=== PATIENT | male | born 1960 | race African-American/Black ===

== ENCOUNTER 2017-04-22 19:47 | Emergency (ER) | payer OTHER ==
[~2017-04-22] VITALS: Ht 167.6 cm; Wt 77.1 kg
[2017-04-22] MEDS ORDERED: MOBIC15 MG PO (20:42)
[2017-04-22 20:48] VITALS: BP 156/85
== END 2017-04-22 20:59 | disposition home or self-care (01) ==
LOC: ER 19:47
DX: K11.5 Sialolithiasis (principal); F17.210 Nicotine dependence, cigarettes, uncomplicated; Z85.89 Personal history of malignant neoplasm of other organs and systems